=== PATIENT | female | born 1995 | race Caucasian/White ===

== ENCOUNTER 2018-04-16 12:38 | Emergency (ER) | payer BC ==
[2018-04-16 12:47] VITALS: BP 113/69
[2018-04-16] MEDS ORDERED: Ibuprofen TAB* 600 MG PO ONE (15:35)
--- NOTE | 2018-04-16 16:13 | RAD ---
HISTORY: Lateral foot and ankle pain and swelling, strain COMPARISONS: None VIEWS: 6 , Frontal, lateral, and oblique views of the right ankle and right foot FINDINGS: BONE DENSITY: Normal. BONES: There is a nondisplaced transverse fracture of the base of the fifth metatarsal. JOINTS: There is no arthropathy. ALIGNMENT: There is no dislocation. SOFT TISSUES: Unremarkable. OTHER FINDINGS: None. IMPRESSION: NONDISPLACED FRACTURE OF THE BASE OF THE FIFTH METATARSAL
--- NOTE | 2018-04-16 16:53 | ED ---
Lower Extremity - HPI Summary HPI Summary: Patient presents with right foot and ankle pain after an injury prior to arrival. She reports she was carrying her laundry out to her car when she all of a sudden felt and instability in her ankle followed by a cracking sounds. She's been able to bear weight however is quite painful. She has swelling along the lateral aspect of her ankle and her foot. Denies numbness tingling or weakness. Has tried ice prior to arrival. No medications. She does have a history of injuring this ankle. Last year, reports jumping down off from a height and when she landed, had swelling in the ankle. The time to heal with rest and ice however did heal eventually. She did not seek medical attention at this time. Otherwise no other medical issues including but not limited to connective tissue disease, osteoporosis, etc. She has not had recent steroids or antibiotics. - History of Current Complaint Chief Complaint: EDExtremityLower Stated Complaint: RT FOOT PAIN Time Seen by Provider: 04/16/18 15:12 Hx Obtained From: Patient, Family/[employer] - mom Pain Intensity: 8 - Allergies/Home Medications Allergies/Adverse Reactions: Allergies Allergy/AdvReac Type Severity Reaction Status Date / Time No Known Allergies Allergy Verified 04/16/18 12:43 PMH/Surg Hx/FS Hx/Imm Hx Previously Healthy: Yes Endocrine/Hematology History: Denies: Hx Anticoagulant Therapy, Hx Blood Disorders, Autoimmune Disease Musculoskeletal History: Reports: Hx Orthopedic Injury - Rt ankle/foot sprain in 2017 Infectious Disease History: No Infectious Disease History: Denies: Traveled Outside the [place] in Last 30 Days - Social History Occupation: Student Lives: Dormitory/Roommates Alcohol Use: Occasionally Hx Substance Use: No Substance Use Type: Reports: None Hx Tobacco Use: No Smoking Status (MU): Never Smoked Tobacco Review of Systems Constitutional: Negative Positive: no symptoms reported Positive: Arthralgia, Myalgia, Decreased ROM, Edema Positive: Bruising Neurological: Negative Psychological: Normal All Other Systems Reviewed And Are Negative: Yes Physical Exam Triage Information Reviewed: Yes Vital Signs On Initial Exam: Initial Vitals Temp Pulse Resp BP Pulse Ox 98.1 F 85 16 113/69 97 04/16/18 12:44 04/16/18 12:44 04/16/18 12:44 04/16/18 12:44 04/16/18 12:44 Vital Signs Reviewed: Yes Appearance: Positive: Well-Appearing, Well-Nourished, Pain Distress - no pain at rest - mild pain w/ movement, palpation of Rt foot Skin: Positive: Warm, Skin Color Reflects Adequate Perfusion, Dry - no erythema , no ecchymosis ENT: Positive: Hearing grossly normal Respiratory/Lung Sounds: Positive: Breath Sounds Present Cardiovascular: Positive: Pulses are Symmetrical in both Upper and Lower Extremities Musculoskeletal: Positive: Strength/ROM Intact - toes, Pain @ - Rt lateral foot w/ edema - mild TTP - Rt lateral ankle w/ edema about the malleolus - NTTP but has pain in ankle and foot w/ plantar and dorsiflexion Neurological: Positive: Normal, Sensory/Motor Intact, Alert, Oriented to Person Place, Time, CN Intact II-III Psychiatric: Positive: Normal Diagnostics - Vital Signs Vital Signs Temp Pulse Resp BP Pulse Ox 04/16/18 12:44 98.1 F 85 16 113/69 97 - Laboratory Lab Statement: Any lab studies that have been ordered have been reviewed, and results considered in the medical decision making process. Lower Extremity Course/Dx - Course Course Of Treatment: non-displaced fx of the 5th MT - Diagnoses Provider Diagnoses: Nondisplaced fracture of fifth right metatarsal bone, Right ankle sprain Discharge - Sign-Out/Discharge Documenting (check all that apply): Patient Departure - Discharge Plan Condition: Stable Disposition: HOME Patient Education Materials: Foot Fracture in Adults (ED), Ankle Sprain (ED), Crutch Instructions (ED) Forms: *School Release Referrals: Katie Pro MD [Medical Doctor] - Additional Instructions: REST, ICE, ELEVATE AND KEEP BOOT CLEAN, DRY AND IN PLACE UNTIL SEEN BY ORTHOPEDICS. You may remove to allow skin to breath, wiggle toes, etc throughout the day but limit time off and range of motion of foot and ankle. Call orthopedics Thursday to schedule follow-up You may take ibuprofen alternating with acetaminophen as needed for pain *If you develop numbness, tingling, weakness, swelling or skin discoloration, remove boot and elevate arm for 20 minutes. If symptoms persist, return to ED - Billing Disposition and Condition Condition: STABLE Disposition: Home
== END 2018-04-16 18:17 | disposition home or self-care (01) ==
LOC: ED 12:38
DX: S92.354A Nondisplaced fracture of fifth metatarsal bone, right foot, initial encounter for closed fracture (principal); M25.571 Pain in right ankle and joints of right foot; M79.671 Pain in right foot; X50.0XXA Overexertion from strenuous movement or load, initial encounter; Y92.9 Unspecified place or not applicable
CPT/HCPCS: 99282; A9270-GY